=== PATIENT | female | born 1935 | race Caucasian/White ===

== ENCOUNTER → 2017-09-02 | Emergency (ER) | payer MEDICARE ==
[~2017-09-02] VITALS: Ht 160 cm; Wt 57.2 kg
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
[2017-09-02 17:36] VITALS: BP 150/71
== END | disposition home or self-care (01) ==
LOC: ER 16:08
DX: M54.2 Cervicalgia (principal); M25.512 Pain in left shoulder; M25.511 Pain in right shoulder; I10 Essential (primary) hypertension; E78.5 Hyperlipidemia, unspecified; E05.90 Thyrotoxicosis, unspecified without thyrotoxic crisis or storm; Z88.8 Allergy status to other drugs, medicaments and biological substances; Z88.5 Allergy status to narcotic agent; Z88.6 Allergy status to analgesic agent; Z88.0 Allergy status to penicillin; Z91.013 Allergy to seafood; V89.2XXA Person injured in unspecified motor-vehicle accident, traffic, initial encounter; Y93.89 Activity, other specified; Y92.411 Interstate highway as the place of occurrence of the external cause; Y99.8 Other external cause status
CPT/HCPCS: 72125; 99284; A4606; Z7610

== ENCOUNTER 2025-07-17 04:08 | Inpatient (IN) | payer MEDICARE ==
[~2025-07-17] VITALS: Ht 160 cm; Wt 51.8 kg
[2025-07-17] MEDS ORDERED: ONDANSETRON HCL/PF 4 MG/2 ML VIAL ONE (04:33)
[2025-07-17] MEDS ORDERED: MORPHINE SULFATE INJ 4 MG/ML DISP.SYRIN ONE (04:33)
[2025-07-17] MEDS: IV NS 0.9% 1,000 ML BAG IV ONE (04:39)
[2025-07-17] MEDS: MORPHINE SULFATE INJ 2 MG/ML DISP.SYRIN IV ONE (04:40)
[2025-07-17] MEDS: ONDANSETRON HCL/PF 4 MG/2 ML VIAL IVP ONE (04:40)
[2025-07-17 05:43] LABS: CALCIUM, SERUM 9.2 mg/dL (8.5-10.1); CREATININE 1.0 mg/dL (0.6-1.3); SODIUM SERUM 143 mmol/L (136-145); UREA NITROGEN, BLOOD 40 mg/dL (7-18)
[2025-07-17 05:49] LABS: ASPARTATE AMINOTRANSFERASE 26 U/L (15-37); TOTAL PROTEIN, SERUM 6.0 g/dL (6.4-8.2)
[2025-07-17 05:50] LABS: PLATELET COUNT (AUTO) 103 K/uL (150-450); RED BLOOD CELL COUNT(AUTO) 4.41 MIL/uL (4.0-5.2); RED CELL DISTRIBUTION WIDTH 27.9 % (11.5-15.0); WHITE BLOOD COUNT (AUTO) 9.4 K/uL (4.3-11.0)
[2025-07-17 05:52] LABS: LACTIC ACID 2.4 mmol/L (0.4-2.0)
[2025-07-17 05:56] LABS: INR 1.37 (0.91-1.10)
[2025-07-17] MEDS: IV NS 0.9% 500 ML BAG IV ONE (05:57)
[2025-07-17] MEDS ORDERED: MEROPENEM 1 G VIAL IV ONE (06:34)
[2025-07-17] MEDS: MEROPENEM 1 G in IV NS 0.9% 100 ML IV ONE (06:39)
[2025-07-17] MEDS ORDERED: IOHEXOL-350 100 ML VIAL IV ONE (07:29)
[2025-07-17] MEDS ORDERED: Z GUARD REMEDY 4 OZ OINT TP PRN (10:00)
[2025-07-17] MEDS ORDERED: MORPHINE SULFATE INJ 2 MG/ML DISP.SYRIN IV PRN (11:30)
[2025-07-17] MEDS: ONDANSETRON HCL/PF 4 MG/2 ML VIAL IVP PRN (12:57)
[2025-07-17] MEDS: IV NS 0.9% 1,000 ML IV PRN (13:02)
[2025-07-17 16:00] VITALS: BP 112/45; TEMP 98.1; O2SAT 94
[2025-07-17] MEDS: MAGNESIUM HYDROXIDE 30 ML UDC PO PRN (16:37)
[2025-07-17] MEDS: ACETAMINOPHEN 325 MG TABLET PO PRN (16:47)
[2025-07-17 20:00] VITALS: BP_SYST 112; BP_SYST 124; BP_DIAS 44; BP_DIAS 45; TEMP 98.1; TEMP 98.5; O2SAT 94
[2025-07-17] MEDS: NA PHOS,M-B/NA PHOS,DI-BA 1 EA ENEMA RC PRN (23:23)
[2025-07-18 04:15] VITALS: BP 128/52; TEMP 98.1; O2SAT 94
[2025-07-18 08:00] VITALS: BP 139/46; TEMP 97.6; O2SAT 93
[2025-07-18] MEDS: MAG HYDROX/AL HYDROX/SIMETH 30 ML UDC PO PRN (09:11)
[2025-07-18] MEDS ORDERED: CARV3.122 PO (09:44)
[2025-07-18] MEDS ORDERED: METH500T4 PO (09:44)
[2025-07-18] MEDS ORDERED: LEVO75TA7 PO (09:44)
[2025-07-18] MEDS ORDERED: CHOL200059 PO (09:44)
[2025-07-18] MEDS ORDERED: MAGN400T30 PO (09:44)
[2025-07-18] MEDS ORDERED: ACET-73 PO (09:44)
[2025-07-18] MEDS ORDERED: ESTR0.5T4 PO (09:44)
[2025-07-18] MEDS ORDERED: ATOR10TA PO (09:44)
[2025-07-18] MEDS ORDERED: ESOM40CA52 PO (09:44)
[2025-07-18] MEDS ORDERED: LISI40TA13 PO (09:44)
[2025-07-18] MEDS ORDERED: LATA2.5D15 EACHEYE (09:44)
[2025-07-18] MEDS ORDERED: CINA30TA6 PO (09:44)
[2025-07-18] MEDS ORDERED: GEMTESA PO (09:44)
[2025-07-18] MEDS ORDERED: AMLO-212 PO (09:44)
[2025-07-18 09:45] VITALS: O2SAT 96
[2025-07-18 10:12] LABS: CALCIUM, SERUM 8.3 mg/dL (8.5-10.1); CREATININE 1.8 mg/dL (0.6-1.3); PHOSPHORUS 5.1 mg/dL (2.5-4.9); SODIUM SERUM 142.0 mmol/L (136-145); UREA NITROGEN, BLOOD 58.0 mg/dL (7-18)
[2025-07-18] MEDS ORDERED: MAGNESIUM CITRATE 296 ML BOTTLE PO ONE (11:00)
[2025-07-18] MEDS: LEVOTHYROXINE SODIUM 75 MCG TABLET PO SCH (11:23)
[2025-07-18] MEDS: MAGNESIUM CITRATE 296 ML BOTTLE PO ONE (11:30)
[2025-07-18] MEDS: CINACALCET HCL 30 MG TABLET PO SCH (11:30)
[2025-07-18 11:50] LABS: PLATELET COUNT (AUTO) 91 K/uL (150-450); RED BLOOD CELL COUNT(AUTO) 3.44 MIL/uL (4.0-5.2); RED CELL DISTRIBUTION WIDTH 27.5 % (11.5-15.0)
[2025-07-18 12:20] LABS: WHITE BLOOD COUNT (AUTO) 53.0 K/uL (4.3-11.0)
[2025-07-18 13:13] LABS: LYMPHOCYTES % (MANUAL) 1 % (16-48); MONOCYTES % (MANUAL) 7 % (0-11.0); NEUTROPHILS % (MANUAL) 92 (42-76); PLATELET ESTIMATE DECREASED
[2025-07-18 16:00] VITALS: BP 121/41; TEMP 97.9; O2SAT 97
[2025-07-18] MEDS: IV NS 0.9% 1,000 ML IV PRN (16:46)
[2025-07-18] MEDS: AMLODIPINE BESYLATE 5 MG TABLET PO SCH (17:00)
[2025-07-18] MEDS: CARVEDILOL 3.125 MG TABLET PO SCH (17:00)
[2025-07-18 20:00] VITALS: BP 119/36; TEMP 97.3; O2SAT 96
[2025-07-18] MEDS: ATORVASTATIN 10 MG TABLET PO SCH (21:35)
[2025-07-18] MEDS: LATANOPROST EYE DROP 0.005% 2.5 ML BOTTLE EACHEYE SCH (21:35)
[2025-07-19 04:00] VITALS: BP 124/44; TEMP 98.2; O2SAT 96
[2025-07-19 06:07] LABS: ASPARTATE AMINOTRANSFERASE 63.0 U/L (15-37); CALCIUM, SERUM 7.6 mg/dL (8.5-10.1); CREATININE 1.4 mg/dL (0.6-1.3); PHOSPHORUS 4.5 mg/dL (2.5-4.9); SODIUM SERUM 139.0 mmol/L (136-145); TOTAL PROTEIN, SERUM 5.5 g/dL (6.4-8.2); UREA NITROGEN, BLOOD 65.0 mg/dL (7-18)
[2025-07-19 08:00] VITALS: BP 123/50; TEMP 97.1; O2SAT 95
[2025-07-19] MEDS: PANTOPRAZOLE 40 MG TABLET.DR PO SCH (10:54)
[2025-07-19 12:36] LABS: PLATELET COUNT (AUTO) 71 K/uL (150-450); RED BLOOD CELL COUNT(AUTO) 3.09 MIL/uL (4.0-5.2); RED CELL DISTRIBUTION WIDTH 28.1 % (11.5-15.0)
[2025-07-19 12:50] LABS: WHITE BLOOD COUNT (AUTO) 46.1 K/uL (4.3-11.0)
[2025-07-19 13:00] VITALS: BP 117/56; TEMP 97.5; O2SAT 94
[2025-07-19 14:06] LABS: BASOPHILS % (MANUAL) 0 % (0.0-2.0); EOSINOPHILS % (MANUAL) 0 % (0-4); LYMPHOCYTES % (MANUAL) 3 % (16-48); MONOCYTES % (MANUAL) 4 % (0-11.0); NEUTROPHILS % (MANUAL) 93 (42-76); PLATELET ESTIMATE DECREASED
[2025-07-19] MEDS: MAGNESIUM CITRATE 296 ML BOTTLE PO ONE (14:30)
[2025-07-19] MEDS ORDERED: ESTRADIOL 1 MG TABLET PO SCH (15:00)
[2025-07-19 16:00] VITALS: BP 115/54; TEMP 97.8; O2SAT 90
[2025-07-19] MEDS: IV NS 0.9% 1,000 ML IV SCH (16:09)
[2025-07-19 17:49] LABS: APPEARANCE,URINE CLEAR (CLEAR); BLOOD, URINE 2+ Ery/uL (NEGATIVE); LEUKOCYTE ESTERASE ,URINE NEGATIVE (NEGATIVE); NITRITE, URINE POSITIVE (NEGATIVE); UGLUCOSE NEGATIVE (NEGATIVE)
[2025-07-19 18:03] LABS: ADD URINE CULTURE YES
[2025-07-19 18:05] LABS: CREATININE, URINE 91.4 MG/DL (30.0-125.0); URINE SODIUM, RANDOM 5.0 mmol/l (40-220); URINE TOTAL PROTEIN 201.5 mg/dL (0-11.9)
[2025-07-19 18:13] LABS: EOSINOPHIL,URINE None Seen
[2025-07-19 19:38] LABS: IRON, SERUM 16 ug/dl (50-175)
[2025-07-19 20:00] VITALS: BP 114/51; TEMP 97.7; O2SAT 95
[2025-07-19 20:00] LABS: PLATELET COUNT (AUTO) 83 K/uL (150-450); RED BLOOD CELL COUNT(AUTO) 3.27 MIL/uL (4.0-5.2); RED CELL DISTRIBUTION WIDTH 28.0 % (11.5-15.0)
[2025-07-19 20:22] LABS: WHITE BLOOD COUNT (AUTO) 41.2 K/uL (4.3-11.0)
[2025-07-20] VITALS (7 sets, daily range): BP systolic 113–131; BP diastolic 47–60; TEMP 97–97.9; O2SAT 80–98
[2025-07-20 02:14] LABS: LYMPHOCYTES % (MANUAL) 2 % (16-48); MONOCYTES % (MANUAL) 2 % (0-11.0); NEUTROPHILS % (MANUAL) 96 (42-76); PLATELET ESTIMATE GIANT PLATELET SEEN
[2025-07-20 06:12] LABS: ASPARTATE AMINOTRANSFERASE 84.0 U/L (15-37); CALCIUM, SERUM 7.5 mg/dL (8.5-10.1); CREATININE 0.8 mg/dL (0.6-1.3); PHOSPHORUS 3.6 mg/dL (2.5-4.9); SODIUM SERUM 140.0 mmol/L (136-145); TOTAL PROTEIN, SERUM 5.7 g/dL (6.4-8.2); UREA NITROGEN, BLOOD 57.0 mg/dL (7-18)
[2025-07-20 06:19] LABS: CREATINE KINASE, TOTAL 321.0 U/L (26-192)
[2025-07-20 06:27] LABS: PLATELET COUNT (AUTO) 75 K/uL (150-450); RED BLOOD CELL COUNT(AUTO) 3.09 MIL/uL (4.0-5.2); RED CELL DISTRIBUTION WIDTH 27.1 % (11.5-15.0)
[2025-07-20 06:33] LABS: WHITE BLOOD COUNT (AUTO) 35.3 K/uL (4.3-11.0)
[2025-07-20 10:15] LABS: BASOPHILS % (MANUAL) 0 % (0.0-2.0); EOSINOPHILS % (MANUAL) 0 % (0-4); LYMPHOCYTES % (MANUAL) 3 % (16-48); MONOCYTES % (MANUAL) 6 % (0-11.0); NEUTROPHILS % (MANUAL) 91 (42-76); PLATELET ESTIMATE DECREASED
[2025-07-20 13:26] LABS: ABG BASE EXCESS -6.6 mmol/L (-2.0-3.0); ABG OXYGEN SATURATION 93.0 % (94.0-98.0); ABG PCO2 39.4 mmHg (32.0-45.0); ABG PH 7.306 (7.350-7.450); ABG PO2 77.2 mmHg (83.0-108.0); ABG TOTAL HEMOGLOBIN 10.3 G/dL (12.0-16.0); FLOW, BLOOD GAS 15.00 L/min (0.00-30.00); FRACTIONATED INSPIRED OXYGEN 100.0 %; SITE, ABG RIGHT RADIAL
[2025-07-20] MEDS ORDERED: DOSING PER PHARMACY-VANCOMYCIN IV XX PRN (14:30)
[2025-07-20] MEDS: LEVOFLOXACIN 750 MG /D5W 150ML 750 MG in PREMIX 1 EA IV SCH (15:46)
[2025-07-20] MEDS: FUROSEMIDE 40 MG/4 ML VIAL IV SCH (15:57)
[2025-07-20] MEDS: VANCOMYCIN 1 GM in IV D5W 250ml IV SCH (16:22)
[2025-07-20] MEDS: POLYETHYLENE GLYCOL 3350 17 GM POWD.PACK PO SCH (21:02)
[2025-07-20] MEDS: METRONIDAZOLE 500 MG TABLET PO SCH (21:03)
[2025-07-21] VITALS (17 sets, daily range): BP systolic 87–156; BP diastolic 40–77; TEMP 97.5–98.9; O2SAT 89–98
[2025-07-21] MEDS: NA PHOS,M-B/NA PHOS,DI-BA 1 EA ENEMA RC PRN (00:53)
[2025-07-21 05:08] LABS: PTH, INTACT 55 pg/mL (15-65)
[2025-07-21 06:03] LABS: PLATELET COUNT (AUTO) 86 K/uL (150-450); RED BLOOD CELL COUNT(AUTO) 3.09 MIL/uL (4.0-5.2); RED CELL DISTRIBUTION WIDTH 28.1 % (11.5-15.0); WHITE BLOOD COUNT (AUTO) 29.2 K/uL (4.3-11.0)
[2025-07-21 06:14] LABS: ASPARTATE AMINOTRANSFERASE 86.0 U/L (15-37); CALCIUM, SERUM 7.0 mg/dL (8.5-10.1); CREATININE 0.9 mg/dL (0.6-1.3); PHOSPHORUS 2.8 mg/dL (2.5-4.9); SODIUM SERUM 145.0 mmol/L (136-145); TOTAL PROTEIN, SERUM 5.6 g/dL (6.4-8.2); UREA NITROGEN, BLOOD 51.0 mg/dL (7-18)
[2025-07-21 06:17] LABS: FIBRINOGEN ACTIVITY 714.0 Mg/dL (213-485); INR 0.97 (0.91-1.10)
[2025-07-21 07:22] LABS: LYMPHOCYTES % (MANUAL) 1 % (16-48); MONOCYTES % (MANUAL) 3 % (0-11.0); NEUTROPHILS % (MANUAL) 96 (42-76); PLATELET ESTIMATE DECREASED
[2025-07-21] MEDS: FUROSEMIDE 20 MG/2 ML VIAL IV SCH (10:56)
[2025-07-21] MEDS ORDERED: LATANOPROST EYE DROP 0.005% 2.5 ML BOTTLE ONE (23:03)
[2025-07-21 23:22] LABS: HIV-1/2 ANTIBODY NON REACTIVE (NONREACTIVE)
[2025-07-22] VITALS (24 sets, daily range): BP systolic 91–145; BP diastolic 40–80; TEMP 97.7–98.6; O2SAT 93–100
[2025-07-22 02:12] LABS: HEPATITIS B CORE AB, TOTAL Negative (Negative)
[2025-07-22 04:36] LABS: PLATELET COUNT (AUTO) 77 K/uL (150-450); RED BLOOD CELL COUNT(AUTO) 3.10 MIL/uL (4.0-5.2); RED CELL DISTRIBUTION WIDTH 28.1 % (11.5-15.0); WHITE BLOOD COUNT (AUTO) 26.5 K/uL (4.3-11.0)
[2025-07-22 05:09] LABS: ASPARTATE AMINOTRANSFERASE 76.0 U/L (15-37); CALCIUM, SERUM 6.8 mg/dL (8.5-10.1); CREATININE 0.8 mg/dL (0.6-1.3); PHOSPHORUS 1.8 mg/dL (2.5-4.9); SODIUM SERUM 147.0 mmol/L (136-145); TOTAL PROTEIN, SERUM 5.3 g/dL (6.4-8.2); UREA NITROGEN, BLOOD 41.0 mg/dL (7-18)
[2025-07-22 05:20] LABS: RHEUMATOID FACTOR SCREEN NEGATIVE (NEGATIVE)
[2025-07-22 05:55] LABS: NEUTROPHILS % (MANUAL) 93 (42-76)
[2025-07-22 05:56] LABS: LYMPHOCYTES % (MANUAL) 4 % (16-48); MONOCYTES % (MANUAL) 3 % (0-11.0); PLATELET ESTIMATE DECREASED
[2025-07-22 08:07] LABS: FREE KAPPA LT CHAINS SERUM 13.1 mg/L (3.3-19.4); FREE LAMBDA LT CHAIN SERUM 16.6 mg/L (5.7-26.3); KAPPA/LAMBDA RATIO SERUM 0.79 (0.26-1.65)
[2025-07-22 08:19] LABS: ABG BASE EXCESS 4.3 mmol/L (-2.0-3.0); ABG OXYGEN SATURATION 94.6 % (94.0-98.0); ABG PCO2 34.2 mmHg (32.0-45.0); ABG PH 7.518 (7.350-7.450); ABG PO2 73.7 mmHg (83.0-108.0); ABG TOTAL HEMOGLOBIN 10.5 G/dL (12.0-16.0); FLOW, BLOOD GAS 6.00 L/min (0.00-30.00); FRACTIONATED INSPIRED OXYGEN 45.0 %; SITE, ABG RIGHT RADIAL
[2025-07-22 10:10] LABS: AFP, TUMOR MARKER <1.8 ng/mL (0.0-8.7); CARBOHYDRATE AG 19-9 37 U/mL (0-35); CARCINOEMBRYONIC ANTIGEN (CEA) 45.2 ng/mL (0.0-4.7)
[2025-07-22] MEDS ORDERED: POTASSIUM PHOSPHATE MM 15 MMOL in IV NS 0.9% 250 ML IV SCH (12:00)
[2025-07-22 12:07] LABS: *ANA ANTI-CENTROMERE B AB <0.2 AI (0.0-0.9); *ANA ANTI-DNA(DS) AB, QN 3 IU/mL (0-9); *ANA ANTI-JO-1 <0.2 AI (0.0-0.9); *ANA ANTICHROMATIN ANTIBODY <0.2 AI (0.0-0.9); *ANA RNP ANTIBODIES 0.2 AI (0.0-0.9); *ANA SJOGREN'S ANTI-SS-A <0.2 AI (0.0-0.9); *ANA SJOGREN'S ANTI-SS-B <0.2 AI (0.0-0.9); *ANAANTI-SCLERODERMA-70 AB <0.2 AI (0.0-0.9); *ANASMITH AB 0.2 AI (0.0-0.9); FOLIC ACID 8.6 ng/mL (>3.0)
[2025-07-22] MEDS: POTASSIUM PHOSPHATE MM 7.5 MMOL in IV NS 0.9% 100 ML IV SCH (12:37)
[2025-07-23] VITALS (8 sets, daily range): BP systolic 100–125; BP diastolic 45–58; TEMP 97.5–98.8; O2SAT 94–99
[2025-07-23 06:56] LABS: PLATELET COUNT (AUTO) 80 K/uL (150-450); RED BLOOD CELL COUNT(AUTO) 3.00 MIL/uL (4.0-5.2); RED CELL DISTRIBUTION WIDTH 28.3 % (11.5-15.0); WHITE BLOOD COUNT (AUTO) 27.4 K/uL (4.3-11.0)
[2025-07-23 10:49] LABS: BASOPHILS % (MANUAL) 0 % (0.0-2.0); EOSINOPHILS % (MANUAL) 0 % (0-4); LYMPHOCYTES % (MANUAL) 4 % (16-48); MONOCYTES % (MANUAL) 7 % (0-11.0); NEUTROPHILS % (MANUAL) 89 (42-76); PLATELET ESTIMATE DECREASED
[2025-07-23] MEDS: IV D5W 1,000 ML IV ONE (11:26)
[2025-07-23] MEDS: IPRATROPIUM NEB FS 0.5 MG/2.5 ML AMPUL.NEB NEB SCH (14:30)
[2025-07-23] MEDS: ALBUTEROL HALF STRENGTH 1.25 MG/3 ML VIAL.NEB NEB SCH (14:30)
[2025-07-23] MEDS ORDERED: MORPHINE SULFATE INJ 4 MG/ML DISP.SYRIN IV PRN (20:30)
[2025-07-24] VITALS (14 sets, daily range): BP systolic 100–150; BP diastolic 47–88; TEMP 97.7–98.5; O2SAT 90–99
[2025-07-24 07:15] LABS: ASPARTATE AMINOTRANSFERASE 61.0 U/L (15-37); CALCIUM, SERUM 6.7 mg/dL (8.5-10.1); CREATININE 0.6 mg/dL (0.6-1.3); PHOSPHORUS 1.2 mg/dL (2.5-4.9); SODIUM SERUM 140.0 mmol/L (136-145); TOTAL PROTEIN, SERUM 5.0 g/dL (6.4-8.2); UREA NITROGEN, BLOOD 22.0 mg/dL (7-18)
[2025-07-24 07:24] LABS: PLATELET COUNT (AUTO) 99 K/uL (150-450); RED BLOOD CELL COUNT(AUTO) 3.06 MIL/uL (4.0-5.2); RED CELL DISTRIBUTION WIDTH 27.8 % (11.5-15.0); WHITE BLOOD COUNT (AUTO) 26.7 K/uL (4.3-11.0)
[2025-07-24 07:29] LABS: IRON, SERUM 41.0 ug/dl (50-175)
[2025-07-24] MEDS ORDERED: POTASSIUM CHLORIDE 20 MEQ TAB.PRT.SR PO ONE (09:00)
[2025-07-24] MEDS: HOME MED MISCELLANEOUS PO SCH (09:08)
[2025-07-24] MEDS: POTASSIUM CHLORIDE 20 MEQ POWDER PACKET PO ONE (09:09)
[2025-07-24 10:04] LABS: LYMPHOCYTES % (MANUAL) 6 % (16-48); MONOCYTES % (MANUAL) 1 % (0-11.0); MYELOCYTES % 2 % (0-0); NEUTROPHILS % (MANUAL) 91 (42-76)
[2025-07-24] MEDS: NEUTRA PHOS 1 POWD.PACKET PO SCH (10:05)
[2025-07-24 10:06] LABS: PLATELET ESTIMATE DECREASED
[2025-07-24] MEDS ORDERED: POTASSIUM CHLORIDE 20 MEQ TAB.PRT.SR PO SCH (11:00)
[2025-07-24] MEDS: LEVOFLOXACIN 750 MG /D5W 150ML 750 MG in PREMIX 1 EA IV SCH (14:00)
[2025-07-24] MEDS ORDERED: POTASSIUM PHOSPHATE MM 15 MMOL in IV NS 0.9% 250 ML IV SCH (15:00)
[2025-07-24] MEDS: METRONIDAZOLE 500MG/ NS 100ML 500 MG in PREMIX 1 EA IV SCH (15:32)
[2025-07-24] MEDS: POTASSIUM PHOSPHATE MM 7.5 MMOL in IV NS 0.9% 100 ML IV SCH (15:32)
[2025-07-24] MEDS: MEROPENEM 1 G in IV NS 0.9% 100 ML IV ONE (20:00)
[2025-07-24] MEDS: AZITHROMYCIN 250 MG TABLET PO SCH (20:24)
[2025-07-24] MEDS ORDERED: MEROPENEM 1 G VIAL IV ONE (21:16)
[2025-07-25] VITALS (15 sets, daily range): BP systolic 98–110; BP diastolic 49–67; TEMP 97.7–99.1; O2SAT 93–100
[2025-07-25 06:16] LABS: PLATELET COUNT (AUTO) 102 K/uL (150-450); RED BLOOD CELL COUNT(AUTO) 2.83 MIL/uL (4.0-5.2); RED CELL DISTRIBUTION WIDTH 27.8 % (11.5-15.0)
[2025-07-25 07:02] LABS: WHITE BLOOD COUNT (AUTO) 35.8 K/uL (4.3-11.0)
[2025-07-25 07:11] LABS: ASPARTATE AMINOTRANSFERASE 50.0 U/L (15-37); CALCIUM, SERUM 6.3 mg/dL (8.5-10.1); CREATININE 0.6 mg/dL (0.6-1.3); PHOSPHORUS 2.8 mg/dL (2.5-4.9); SODIUM SERUM 139.0 mmol/L (136-145); TOTAL PROTEIN, SERUM 4.9 g/dL (6.4-8.2); UREA NITROGEN, BLOOD 17.0 mg/dL (7-18)
[2025-07-25] MEDS: MEROPENEM 1 G in IV NS 0.9% 100 ML IV SCH (09:47)
[2025-07-25 11:41] LABS: BASOPHILS % (MANUAL) 0 % (0.0-2.0); EOSINOPHILS % (MANUAL) 0 % (0-4); LYMPHOCYTES % (MANUAL) 6 % (16-48); MONOCYTES % (MANUAL) 9 % (0-11.0); NEUTROPHILS % (MANUAL) 85 (42-76)
[2025-07-25 11:42] LABS: PLATELET ESTIMATE DECREASED
[2025-07-25] MEDS ORDERED: GADOTERATE MEGLUMINE 5 MMOL/10 ML VIAL IV ONE (15:37)
[2025-07-26] VITALS (15 sets, daily range): BP systolic 100–127; BP diastolic 45–88; TEMP 97.3–99.1; O2SAT 93–100
[2025-07-26] MEDS: ESTRADIOL 1 MG TABLET PO SCH (10:23)
[2025-07-26 10:38] LABS: PLATELET COUNT (AUTO) 135 K/uL (150-450); RED BLOOD CELL COUNT(AUTO) 2.99 MIL/uL (4.0-5.2); RED CELL DISTRIBUTION WIDTH 28.6 % (11.5-15.0); WHITE BLOOD COUNT (AUTO) 25.6 K/uL (4.3-11.0)
[2025-07-26 13:10] LABS: *SPE A/G RATIO 1.4 (0.7-1.7); *SPE ALBUMIN 3.0 g/dL (2.9-4.4); *SPE ALPHA-1-GLOBULIN 0.4 g/dL (0.0-0.4); *SPE ALPHA-2-GLOBULIN 0.8 g/dL (0.4-1.0); *SPE BETA GLOBULIN 0.6 g/dL (0.7-1.3); *SPE GLOBULIN, TOTAL 2.2 g/dL (2.2-3.9); *SPE M-SPIKE Not Observed g/dL (Not Observed); *SPE PROTEIN TOTAL 5.2 g/dL (6.0-8.5); *SPEGAMMA GLOBULIN 0.4 g/dL (0.4-1.8)
[2025-07-27] VITALS (12 sets, daily range): BP systolic 109–114; BP diastolic 46–64; TEMP 98–98.6; O2SAT 95–100
[2025-07-27] MEDS: POTASSIUM CHLORIDE 20 MEQ TAB.PRT.SR PO SCH (09:09)
[2025-07-27] MEDS: FUROSEMIDE 100 MG/10 ML VIAL IV SCH ×2 (09:36→19:55)
[2025-07-27] MEDS: HOME MED MISCELLANEOUS PO SCH (16:24)
[2025-07-28] VITALS (11 sets, daily range): BP systolic 118–140; BP diastolic 52–83; TEMP 97.9–98.2; O2SAT 94–100
[2025-07-28 07:26] LABS: PLATELET COUNT (AUTO) 138 K/uL (150-450); RED BLOOD CELL COUNT(AUTO) 3.03 MIL/uL (4.0-5.2); RED CELL DISTRIBUTION WIDTH 28.4 % (11.5-15.0)
[2025-07-28 07:29] LABS: ASPARTATE AMINOTRANSFERASE 54.0 U/L (15-37); CALCIUM, SERUM 7.1 mg/dL (8.5-10.1); CREATININE 1.3 mg/dL (0.6-1.3); PHOSPHORUS 3.2 mg/dL (2.5-4.9); SODIUM SERUM 140.0 mmol/L (136-145); TOTAL PROTEIN, SERUM 5.5 g/dL (6.4-8.2); UREA NITROGEN, BLOOD 20.0 mg/dL (7-18)
[2025-07-28 07:35] LABS: WHITE BLOOD COUNT (AUTO) 35.5 K/uL (4.3-11.0)
[2025-07-28 08:29] LABS: BASOPHILS % (MANUAL) 0 % (0.0-2.0); EOSINOPHILS % (MANUAL) 0 % (0-4); LYMPHOCYTES % (MANUAL) 8 % (16-48); MONOCYTES % (MANUAL) 10 % (0-11.0); NEUTROPHILS % (MANUAL) 82 (42-76); PLATELET ESTIMATE PLATELET CLUMPS SEEN
[2025-07-29] VITALS (13 sets, daily range): BP systolic 113–131; BP diastolic 44–61; TEMP 97.5–97.9; O2SAT 94–100
[2025-07-29 06:17] LABS: CALCIUM, SERUM 7.5 mg/dL (8.5-10.1); CREATININE 0.7 mg/dL (0.6-1.3); SODIUM SERUM 141.0 mmol/L (136-145); UREA NITROGEN, BLOOD 18.0 mg/dL (7-18)
[2025-07-29 06:45] LABS: PLATELET COUNT (AUTO) 120 K/uL (150-450); RED BLOOD CELL COUNT(AUTO) 2.99 MIL/uL (4.0-5.2); RED CELL DISTRIBUTION WIDTH 28.5 % (11.5-15.0); WHITE BLOOD COUNT (AUTO) 29.1 K/uL (4.3-11.0)
[2025-07-29 07:09] LABS: IMMUNOGLOBULIN A, SERUM 158 mg/dL (64-422); IMMUNOGLOBULIN M, SERUM 83 mg/dL (26-217)
[2025-07-29 09:40] LABS: BAND % (MANUAL) 4 % (0.0-5.0); LYMPHOCYTES % (MANUAL) 6 % (16-48); MONOCYTES % (MANUAL) 12 % (0-11.0); NEUTROPHILS % (MANUAL) 78 (42-76); PLATELET ESTIMATE DECREASED
[2025-07-30] VITALS (11 sets, daily range): BP systolic 117–132; BP diastolic 47–82; TEMP 97.5–97.8; O2SAT 93–99
[2025-07-30 06:21] LABS: PLATELET COUNT (AUTO) 151 K/uL (150-450); RED BLOOD CELL COUNT(AUTO) 3.13 MIL/uL (4.0-5.2); RED CELL DISTRIBUTION WIDTH 28.3 % (11.5-15.0)
[2025-07-30 06:29] LABS: CALCIUM, SERUM 7.8 mg/dL (8.5-10.1); CREATININE 0.5 mg/dL (0.6-1.3); SODIUM SERUM 140.0 mmol/L (136-145); UREA NITROGEN, BLOOD 13.0 mg/dL (7-18)
[2025-07-30 06:43] LABS: WHITE BLOOD COUNT (AUTO) 36.5 K/uL (4.3-11.0)
[2025-07-30] MEDS: Z GUARD REMEDY 4 OZ OINT TP SCH (10:06)
[2025-07-30] MEDS: CLOTRIMAZOLE 1% 15 GM TUBE TP SCH (10:11)
[2025-07-30 10:55] LABS: BAND % (MANUAL) 1 % (0.0-5.0); LYMPHOCYTES % (MANUAL) 9 % (16-48); MONOCYTES % (MANUAL) 11 % (0-11.0); NEUTROPHILS % (MANUAL) 79 (42-76)
[2025-07-30 10:56] LABS: PLATELET ESTIMATE ADEQUATE
[2025-07-30] MEDS: MEROPENEM 1 G in IV NS 0.9% 100 ML IV SCH (16:24)
[2025-07-31] VITALS (12 sets, daily range): BP systolic 118–126; BP diastolic 52–67; TEMP 97.3–98.6; O2SAT 97–100
[2025-07-31 07:52] LABS: CALCIUM, SERUM 7.8 mg/dL (8.5-10.1); CREATININE 0.5 mg/dL (0.6-1.3); SODIUM SERUM 141.0 mmol/L (136-145); UREA NITROGEN, BLOOD 11.0 mg/dL (7-18)
[2025-07-31 08:00] LABS: PLATELET COUNT (AUTO) 184 K/uL (150-450); RED BLOOD CELL COUNT(AUTO) 2.98 MIL/uL (4.0-5.2); RED CELL DISTRIBUTION WIDTH 27.9 % (11.5-15.0)
[2025-07-31 08:08] LABS: WHITE BLOOD COUNT (AUTO) 35.2 K/uL (4.3-11.0)
[2025-07-31] MEDS: ENSURE ENLIVE 237 ML LIQUID (VANILLA) PO SCH (08:52)
[2025-07-31 11:37] LABS: LYMPHOCYTES % (MANUAL) 22 % (16-48); MONOCYTES % (MANUAL) 6 % (0-11.0); NEUTROPHILS % (MANUAL) 72 (42-76)
[2025-07-31 11:38] LABS: PLATELET ESTIMATE ADEQUATE
[2025-07-31] MEDS: ENSURE ENLIVE CHOC 237 ML CAN PO SCH (13:03)
[2025-08-01] VITALS (10 sets, daily range): BP systolic 103–127; BP diastolic 50–61; TEMP 97.6–98.6; O2SAT 94–100
[2025-08-01 07:45] LABS: PLATELET COUNT (AUTO) 184 K/uL (150-450); RED BLOOD CELL COUNT(AUTO) 2.79 MIL/uL (4.0-5.2); RED CELL DISTRIBUTION WIDTH 27.9 % (11.5-15.0); WHITE BLOOD COUNT (AUTO) 26.9 K/uL (4.3-11.0)
[2025-08-01 13:36] LABS: LYMPHOCYTES % (MANUAL) 17 % (16-48); MONOCYTES % (MANUAL) 10 % (0-11.0); MYELOCYTES % 2 % (0-0); NEUTROPHILS % (MANUAL) 71 (42-76); PLATELET ESTIMATE ADEQUATE
[2025-08-02 04:00] VITALS: BP 136/64; TEMP 97.7; O2SAT 98
[2025-08-02 07:02] LABS: PLATELET COUNT (AUTO) 198 K/uL (150-450); RED BLOOD CELL COUNT(AUTO) 2.85 MIL/uL (4.0-5.2); RED CELL DISTRIBUTION WIDTH 28.1 % (11.5-15.0); WHITE BLOOD COUNT (AUTO) 24.9 K/uL (4.3-11.0)
[2025-08-02 07:06] LABS: CALCIUM, SERUM 8.9 mg/dL (8.5-10.1); CREATININE 0.5 mg/dL (0.6-1.3); SODIUM SERUM 139.0 mmol/L (136-145); UREA NITROGEN, BLOOD 12.0 mg/dL (7-18)
[2025-08-02 07:30] VITALS: O2SAT 96
[2025-08-02 07:41] VITALS: O2SAT 100
[2025-08-02 08:00] VITALS: BP 133/50; TEMP 97.6; O2SAT 97
[2025-08-02 11:50] LABS: EOSINOPHILS % (MANUAL) 1 % (0-4); LYMPHOCYTES % (MANUAL) 10 % (16-48); MONOCYTES % (MANUAL) 18 % (0-11.0); NEUTROPHILS % (MANUAL) 71 (42-76)
[2025-08-02 11:51] LABS: PLATELET ESTIMATE ADEQUATE
[2025-08-02 12:38] VITALS: O2SAT 95
[2025-08-02 12:49] VITALS: O2SAT 99
== END 2025-08-02 16:23 | DRG 917 ==
LOC: ER 04:21 → TELE IN 06:45 → TELE-TD 07:53 → MEDSG1 11:23 → TELE1 07-20 12:47 → MEDSG1 07-21 10:00 → ICU 07-21 14:56 → TELE-TD 07-22 15:33 → TELE1 07-23 10:13 → MEDSG1 07-26 09:27
PROVIDERS: ADMIT Internal Medicine; ATTEND Internal Medicine
DX: T50.991A Poisoning by other drugs, medicaments and biological substances, accidental (unintentional), initial encounter (principal); J15.69 Pneumonia due to other Gram-negative bacteria; J69.0 Pneumonitis due to inhalation of food and vomit; J96.01 Acute respiratory failure with hypoxia; N17.0 Acute kidney failure with tubular necrosis; D61.818 Other pancytopenia; D68.9 Coagulation defect, unspecified; J90 Pleural effusion, not elsewhere classified; D69.6 Thrombocytopenia, unspecified; I13.0 Hypertensive heart and chronic kidney disease with heart failure and stage 1 through stage 4 chronic kidney disease, or unspecified chronic kidney disease; E05.90 Thyrotoxicosis, unspecified without thyrotoxic crisis or storm; D53.9 Nutritional anemia, unspecified; E03.9 Hypothyroidism, unspecified; N18.9 Chronic kidney disease, unspecified; K76.89 Other specified diseases of liver; E87.20 Acidosis, unspecified; I50.32 Chronic diastolic (congestive) heart failure; E87.0 Hyperosmolality and hypernatremia; J98.11 Atelectasis; E86.0 Dehydration; K59.00 Constipation, unspecified; Y92.9 Unspecified place or not applicable; R79.89 Other specified abnormal findings of blood chemistry; N32.81 Overactive bladder; M19.90 Unspecified osteoarthritis, unspecified site; E78.5 Hyperlipidemia, unspecified; Z88.5 Allergy status to narcotic agent; Z88.6 Allergy status to analgesic agent; Z88.0 Allergy status to penicillin; Z91.041 Radiographic dye allergy status; Z88.8 Allergy status to other drugs, medicaments and biological substances; Z91.013 Allergy to seafood; E83.41 Hypermagnesemia; E83.51 Hypocalcemia; E87.5 Hyperkalemia; E87.6 Hypokalemia; R54 Age-related physical debility; D75.9 Disease of blood and blood-forming organs, unspecified; D72.829 Elevated white blood cell count, unspecified
CPT/HCPCS: 36415; 36600; 71045-TC; 71250-TC; 74018; 74183; 76641-TC; 76770-TC; 80048-TC; 80053-TC; 80076-TC; 81001; 82105; 82378; 82550-TC; 82553; 82570-TC; 82607-TC; 82728-TC; 82784; 82803-TC; 83540-TC; 83605-TC; 83690-TC; 83735-TC; 83970; 84100-TC; 84155; 84165; 84300-TC; 84443-TC; 84484-TC; 85025-TC; 85027-TC; 85045-TC; 85396; 85730-TC; 86140-TC; 86225; 86235; 86300; 86301; 86317; 86334; 86431-TC; 86704; 86803; 87040-TC; 87081-TC; 87086-TC; 87340; 87806; 93307-TC; 93970-TC; 94760-TC; 94761-TC; 94762-TC; 94799-TC; 97110-TC; 97116-TC; 97530-TC; A4216; A4223; A6213; A9575; G0378; J1938; J1956; J2185; J2270; J2405; J3373; J3490; J7030; J7042; J7050; J7060; J7070; Q9967